=== PATIENT | female | born 1985 | race Two or more races ===

== ENCOUNTER → 2019-03-18 | Outpatient (CLI) | payer MEDICAID, SELFPAY ==
--- NOTE | 2019-03-18 17:13 | REP ---
OB ULTRASOUND: Real-time sonographic evaluation of the gravid uterus is performed. There is a single living intrauterine gestation, estimated gestational age 29 weeks 3 days, EDC 05/31/2019. Today's measurements indicate appropriate growth. BPD 75 mm = 30 weeks 1 day, 60th percentile HC 274 mm = 29 weeks 6 days, 61st percentile AC 271 mm = 31 weeks 2 days, 77th percentile FL 57 mm = 29 weeks 6 days, 59th percentile HC/AC ratio 1.01, within normal range. Estimated weight 1596 grams, 69th percentile. Cervix is closed and measures 5.4 cm in length. heart rate 155 beats per minute. Amniotic fluid within normal limits, FAISAL 15.5, with a normal range of 9.1 to 23.2. S/D ratio 2.55 and RI 0.61, within normal range. SEEN/GROSSLY UNREMARKABLE Lateral ventricles yes Posterior fossa yes Upper lip yes Four-chamber heart yes LVOT yes RVOT yes Stomach yes Cord insertion yes Three vessel cord yes Kidneys yes Bladder yes Spine yes position: Vertex. Placenta: Posterior and to the right, grade 0 with no previa or abruption. Electronically Signed by Reed Rutledge MD 03/19/2019 04:25 P
== END ==
LOC: M RAD 12:19
PROVIDERS: ATTEND Advanced Practice Midwife
DX: Z34.83 Encounter for supervision of other normal pregnancy, third trimester (principal); Z36.89 Encounter for other specified antenatal screening; Z3A.29 29 weeks gestation of pregnancy

== ENCOUNTER → 2019-03-24 | Outpatient (CLI) | payer MEDICAID, SELFPAY ==
[2019-03-24 19:08] LABS: GLUCOSE CHALLENGE TEST 1 HOUR 123 MG/DL (LESS THAN 140)
[2019-03-24 19:27] LABS: BASO % 0.4 % (0.0-1.0); EOS # 0.1 10^3/uL (0.0-0.50); EOS % 1.8 % (0.0-3.0); HEMATOCRIT 37.2 % (36.0-47.0); HEMOGLOBIN 12.8 g/dl (12.0-15.5); LYMPH # 1.8 10^3/uL (1.5-4.5); LYMPH % 23.8 % (24.0-44.0); MEAN CORPUSCULAR HEMOGLOBIN 31.2 pg (27.0-33.0); MEAN CORPUSCULAR HGB CONC 34.4 g/dl (32.0-36.5); MEAN CORPUSCULAR VOLUME 90.7 fl (80.0-96.0); MONO # 0.4 10^3/uL (0.0-0.8); MONO % 5.7 % (0.0-5.0); NEUTROPHILS # 5.1 10^3/uL (1.8-7.7); NEUTROPHILS % 67.8 % (36.0-66.0); PLATELET COUNT, AUTOMATED 214 10^3/uL (150-450); WHITE BLOOD COUNT 7.6 10^3/uL (4.0-10.0)
[2019-03-25 10:24] LABS: RUBELLA IgG QUALITATIVE IMMUNE (IMMUNE)
[2019-03-25 10:53] LABS: HIV 1&2 SCREEN CENTAUR NEGATIVE (NEGATIVE)
[2019-03-25 12:18] LABS: HEPATITIS C VIRUS ABY INDEX < 0.0 INDEX (<0.8)
== END ==
LOC: M SMT 11:02
PROVIDERS: ATTEND Advanced Practice Midwife
DX: Z34.83 Encounter for supervision of other normal pregnancy, third trimester (principal); Z3A.00 Weeks of gestation of pregnancy not specified

== ENCOUNTER → 2019-04-01 | Outpatient (REF) | payer MEDICAID ==
[2019-04-01 21:09] LABS: CHLAMYDIA DNA AMPLIFICATION NEGATIVE (NEGATIVE); GC DNA AMPLIFICATION NEGATIVE (NEGATIVE)
== END ==
LOC: M LAB REF 17:09
PROVIDERS: ATTEND Advanced Practice Midwife
DX: Z34.83 Encounter for supervision of other normal pregnancy, third trimester (principal); Z3A.00 Weeks of gestation of pregnancy not specified

== ENCOUNTER 2019-05-19 06:38 | Inpatient (IN) | payer MEDICAID, OTHER ==
[~2019-05-19] VITALS: Ht 152.4 cm; Wt 87.1 kg
[2019-05-19] VITALS (8 sets, daily range): BP systolic 104–123; BP diastolic 53–75
[~2019-05-19 06:38] MED LIST: MULTTAB20 PO; OXYTOCIN INJ 10 UNITS/ML VIAL (J2590) IV ONE
[2019-05-19] MEDS ORDERED: LR 1,000 ML IV SCH ×2 (07:07→10:30)
[2019-05-19] MEDS ORDERED: LACTATED RINGER'S 1000 ML IV STA (07:07)
[2019-05-19] MEDS ORDERED: BICITRA 30ML SOLN UDC PO ONE (07:15)
[2019-05-19] MEDS ORDERED: OXYTOCIN INJ 10 UNITS/ML VIAL (J2590) As Ordered ONE (07:37)
[2019-05-19] MEDS ORDERED: ONDANSETRON 4MG/2ML VIAL (J2405) As Ordered ONE (07:38)
[2019-05-19] MEDS ORDERED: KETOROLAC 60 MG/2 ML VIAL (J1885) As Ordered ONE (07:39)
[2019-05-19] MEDS ORDERED: MORPHINE PRES-FREE INJ 10 MG/10 ML VIAL (J2274) As Ordered ONE (07:41)
[2019-05-19 08:09] LABS: HEMATOCRIT 36.1 % (36.0-47.0); HEMOGLOBIN 12.9 g/dl (12.0-15.5); MEAN CORPUSCULAR HEMOGLOBIN 31.9 pg (27.0-33.0); MEAN CORPUSCULAR HGB CONC 35.7 g/dl (32.0-36.5); MEAN CORPUSCULAR VOLUME 89.1 fl (80.0-96.0); PLATELET COUNT, AUTOMATED 175 10^3/uL (150-450); RED BLOOD COUNT 4.05 10^6/uL (4.00-5.40); WHITE BLOOD COUNT 7.1 10^3/uL (4.0-10.0)
[2019-05-19] MEDS ORDERED: NALBUPHINE HCL 10 MG/ML AMP (J2300) IV PRN ×2 (09:04→10:30)
[2019-05-19] MEDS ORDERED: NALOXONE INJ 0.4 MG/1 ML VIAL (J2310) IV PRN ×2 (09:04)
[2019-05-19] MEDS ORDERED: diphenhydrAMINE INJ 50MG/ML VIAL (J1200) IV PRN ×2 (09:04→10:30)
[2019-05-19] MEDS ORDERED: METOCLOPRAMIDE INJ 10MG/2ML VIAL (J2765) IV PRN ×2 (09:04→10:30)
[2019-05-19] MEDS ORDERED: ONDANSETRON 4MG/2ML VIAL (J2405) IV PRN ×3 (09:04→10:30)
[2019-05-19] MEDS ORDERED: ePHEDrine SULFATE 25 MG/5 ML(5MG/ML) SYRINGE As Ordered ONE (09:41)
[2019-05-19] MEDS ORDERED: PHENYLephrine HCL 500 MCG/5 ML (100MCG/ML) SYRINGE (J2370) As Ordered ONE (09:41)
[2019-05-19] MEDS ORDERED: MEASLES,MUMPS,RUBELLA VACCINE INJ (MMR-II) (90707) SC SCH (10:00)
[2019-05-19] MEDS ORDERED: RHOGAM 300 MCG (1500 IU) INJ (J2790) IM SCH (10:00)
[2019-05-19] MEDS ORDERED: IBUPROFEN 800 MG TAB PO PRN (10:00)
[2019-05-19] MEDS ORDERED: PERCOCET 5MG/325MG TAB PO PRN ×3 (10:00→10:30)
[2019-05-19] MEDS ORDERED: IBUPROFEN 600 MG TAB PO PRN (10:00)
[2019-05-19] MEDS ORDERED: OXYTOCIN DRIP 30 UNITS in APPROPRIATE DILUENT 1 EA IV SCH (10:00)
[2019-05-19] MEDS ORDERED: DOCUSATE SODIUM 100 MG CAP PO PRN (10:00)
[2019-05-19] MEDS ORDERED: MEPERIDINE INJ 25 MG/ML VIAL (J2175) IV PRN (10:30)
[2019-05-19] MEDS ORDERED: fentaNYL 100 MCG/2 ML INJECTION (J3010) IV PRN (10:30)
[2019-05-19] MEDS ORDERED: OXYTOCIN 30 UNITS IN 0.9% NaCl 500ML IV BAG (J2590) As Ordered ONE (10:34)
[2019-05-19] MEDS: KETOROLAC 30 MG/ML VIAL (J1885) IV SCH ×2 (14:57→21:02)
[2019-05-19] MEDS: LR 1,000 ML IV SCH (16:58)
--- NOTE | 2019-05-19 23:12 | RO ---
DATE OF PROCEDURE: 05/19/2019 PREPROCEDURE DIAGNOSIS: 39 weeks, prior section times two. POSTPROCEDURE DIAGNOSIS: 39 weeks, prior section times two. PROCEDURE: Repeat low transverse section. SURGEON: Marcus Moody MD ORNAMENTAL METAL WORKER APPRENTICE: Becky Dwyer CNM ANESTHESIA: Spinal. ESTIMATED BLOOD LOSS: 500 mL. URINE OUTPUT: 150 mL. FINDINGS: 7 pound 4 ounce, 3300 gram female . scores 9 and 9. Vertex position. Lower uterine segment was noted to be quite thin. Otherwise, normal uterus, fallopian tubes, ovaries. DESCRIPTION OF PROCEDURE: The patient was taken to the operating room where spinal anesthesia was induced. She was prepped and draped in a sterile fashion in the supine position. A Calvillo catheter was placed. A Pfannenstiel skin incision was made with a scalpel and carried through to the fascia. The fascia was nicked and extended. The fascia was dissected off the rectus muscles. The rectus muscles were divided. The peritoneal cavity was entered. A bladder flap was created. Curvilinear incision was made in the lower uterine segment until clear fluid was noted. This was extended manually. The infant was delivered with a single use of the vacuum extractor without difficulty. The cord was doubly clamped and cut. The infant was handed off to the awaiting nurse. The placenta was expressed. The uterus was exteriorized and cleared of clots and debris. The uterine incision was closed with #0 Vicryl in a running locked fashion. Several figure-of-8 sutures were placed for hemostasis. The uterus was placed back in the abdominal cavity. The peritoneum was closed with #2-0 Vicryl in a running fashion. The fascia was closed with #0 Vicryl in a running fashion. The deep layer was irrigated and closed with #3-0 chromic. The skin was closed with #4-0 Monocryl subcuticular sutures. Sponge, instrument and needle counts were correct. Becky Elliott CNM assisted with all aspects of the procedure. She helped create all layers of the abdomen. She helped expel the fetus, and close all subsequent layers. NICH[facility]YES MEMORIAL HOSPITALIvanna
[2019-05-20] MEDS: LR 1,000 ML IV SCH (01:24)
[2019-05-20 02:20] VITALS: BP 93/51
[2019-05-20] MEDS: KETOROLAC 30 MG/ML VIAL (J1885) IV SCH (03:00)
[2019-05-20 06:20] VITALS: BP 98/50
[2019-05-20 07:53] LABS: MEAN CORPUSCULAR HEMOGLOBIN 31.8 pg (27.0-33.0); MEAN CORPUSCULAR VOLUME 90.9 fl (80.0-96.0); PLATELET COUNT, AUTOMATED 157 10^3/uL (150-450); WHITE BLOOD COUNT 8.5 10^3/uL (4.0-10.0)
[2019-05-20 08:01] LABS: HEMOGLOBIN 10.5 g/dl (12.0-15.5)
[2019-05-20] MEDS: PRENATAL VITAMINS CHEWABLE TABLET PO SCH (08:04)
[2019-05-20 10:00] VITALS: BP 106/55
[2019-05-20] MEDS ORDERED: IBUPROFEN 800 MG TAB PO PRN (11:00)
[2019-05-20] MEDS: IBUPROFEN 600 MG TAB PO PRN ×2 (13:52→19:59)
[2019-05-20 14:00] VITALS: BP 115/66
[2019-05-20 18:00] VITALS: BP 112/67
[2019-05-20 22:00] VITALS: BP 100/58
[2019-05-21 02:10] VITALS: BP 93/55
[2019-05-21 06:02] VITALS: BP 100/62
--- NOTE | 2019-05-21 07:25 | DSES ---
DATE OF ADMISSION: 05/19/2019 DATE OF DISCHARGE: DISCHARGE DIAGNOSIS: Repeat section at 39 weeks, postoperative day #2, stable. SURGEON: Dr. Marcus Moody CARBIDE TOOL DIE MAKER: Becky Dwyer, Certified Nurse Senior Accounts Payable Clerk. HISTORY: Kat is a 33-year-old, 3, para 3-0-0-3 now, who was admitted to labor and delivery for repeat section at term. The surgery was uncomplicated. Estimated blood loss 500 mL. She delivered a live female 7 pounds 4 ounces, 3300 grams, Apgars 9 and 9. Her postoperative course has been uncomplicated. She has been out of bed for self care, kiki care and care. She is breast-feeding. Her pain has been well controlled with by mouth pain medications. She is voiding without difficulty and passing flatus. OBJECTIVE: Temperature 98.6, pulse 76, respirations 18, BP 100/62. Preoperative CBC on 05/19/2019 with hemoglobin 12.9, hematocrit 36.1, platelets 175. Postoperative CBC on 05/20/2019 with hemoglobin 10.5, hematocrit 30.0, platelets 157. Breasts are soft, nontender. Nipples are intact. Abdomen: Fundus firm at one fingerbreadth below umbilicus. Incision dressing is applied. There is no drainage noted. Perineum is intact. Lochia rubra scant. PLAN: Discharge the patient home today. She is to follow up at [facility] for a 2-week incision check and an 8-week visit. I did review discharge instructions that include breast care, incision care, kiki care, pelvic rest, activity and lifting restrictions, danger signs to report and access to her provider. Prescriptions have been E-prescribed by Dr. Marcus Moody to the patient's pharmacy for Percocet 5/325 one to two tablets by mouth every 4 hours as needed for pain. The patient has had all her questions answered and desires to be discharged home today.
[2019-05-21] MEDS: PRENATAL VITAMINS CHEWABLE TABLET PO SCH (07:38)
[2019-05-21] MEDS: IBUPROFEN 600 MG TAB PO PRN (07:39)
== END 2019-05-21 15:25 | disposition home or self-care (01) | DRG 540 ==
LOC: M LDI 06:38 → M OBS 12:06
PROVIDERS: ADMIT Specialist; ATTEND Specialist
PROC: 10D00Z1 Extraction of Products of Conception, Low, Open Approach (ICD-10-PCS; principal; 2019-05-19 09:00)
DX: O34.211 Maternal care for low transverse scar from previous cesarean delivery (principal); Z3A.39 39 weeks gestation of pregnancy; Z37.0 Single live birth